=== PATIENT | male | born 1950 | race Caucasian/White ===

== ENCOUNTER → 2016-03-28 | Outpatient (REF) | payer BC, OTHER ==
[2016-03-28 11:05] LABS: BASOPHILS % (AUTO) 1 % (0-2); EOSINOPHILS # (AUTO) 0.2 10^3uL; EOSINOPHILS % (AUTO) 2 % (0-4); LYMPHOCYTES # (AUTO) 2.7 X10^3; MEAN CORPUSCULAR HEMOGLOBIN 28.1 PG (26.0-34.0); MEAN CORPUSCULAR HGB CONC 33.1 g/dL (31.0-37.0); MEAN CORPUSCULAR VOLUME 85 FL (80-100); MEAN PLATELET VOLUME 10.3 FL (6.0-9.5); MONOCYTES # (AUTO) 0.8 X10^3; MONOCYTES % (AUTO) 7 % (3-11); NEUTROPHILS # (AUTO) 6.6 X10^3; NEUTROPHILS % (AUTO) 64 % (51-67); PLATELET COUNT 489 10^3uL (150-450); WHITE BLOOD COUNT 10.44 10^3uL (4.0-11.0)
[2016-03-28 11:05] LABS: BILIRUBIN,URINE Negative (Negative); CLARITY,URINE Clear; COLOR,URINE Yellow; GLUCOSE, URINE (UA) Trace (Negative); LEUKOCYTE ESTERASE ,URINE Negative (Negative); UROBILINOGEN,URINE 0.2 mg/dL (0.2-1.0)
[2016-03-28 11:09] LABS: ALBUMIN 3.9 g/dL (3.4-5.0); ANION GAP 23.8 MEQ/L (3-15); PHOSPHORUS 6.3 mg/dL (2.4-4.9); TOTAL PROTEIN 7.4 g/dL (6.4-8.5)
[2016-03-28 11:16] LABS: RBC,URINE 0-2 /HPF; URINE CENTRIFUGED VOLUME 12 mL
== END ==
LOC: LAB 10:20
PROVIDERS: ATTEND Family Medicine
DX: N18.6 End stage renal disease (principal); E78.4 Other hyperlipidemia; I10 Essential (primary) hypertension; E11.9 Type 2 diabetes mellitus without complications
CPT/HCPCS: 80061; 80069; 80076; 81003; 81015; 82570; 83036; 83970; 84156; 84443; 85025